=== PATIENT | male | born 1955 | race Caucasian/White ===

== ENCOUNTER 2025-09-06 21:51 | Emergency (ER) | payer MEDICARE, SELFPAY ==
[2025-09-06 22:07] VITALS: BP 195/94; PULSE 72; RESP 16; TEMP 36.2; O2SAT 94; BMI 28.7
--- NOTE | 2025-09-07 01:58 | ED.GENADULT ---
HPI - General Adult General Chief complaint: Hypertension Stated complaint: high bp 187/117 Time Seen by Provider: 09/07/25 01:54 Source: patient Mode of arrival: Ambulatory History of Present Illness HPI narrative: 69-year-old male seen in clinic with elevated pressure, takes metoprolol twice daily, worried about his blood pressure, wanted to have his blood pressure checked, has appointment with PCP in the morning. Related Data Home Medications ?Medication ?Instructions ?Recorded ?Confirmed alpha lipoic acid 600 mg capsule 600 mg PO DAILY 05/03/25 05/03/25 magnesium citrate 400mg PO 05/03/25 metformin 500 mg tablet,extended 500 mg PO DAILY 05/03/25 05/03/25 release 24 hr metoprolol succinate 25 mg 25 mg PO BID 05/03/25 05/03/25 tablet,extended release 24 hr potassium citrate 10 mEq (1,080 PO 05/03/25 05/03/25 mg) tablet,extended release pravastatin 40 mg tablet 40 mg PO DAILY 05/03/25 05/03/25 telmisartan 80 mg tablet 80 mg PO DAILY 05/03/25 05/03/25 Allergies Allergy/AdvReac Type Severity Reaction Status Date / Time atorvastatin AdvReac Severe Muscle Pain Verified 09/06/25 22:07 hazelnut AdvReac Intermediate periorbital Verified 09/06/25 22:07 edema lisinopril AdvReac Intermediate Cough Verified 09/06/25 22:07 amlodipine AdvReac Unknown Verified 09/06/25 22:07 hydrochlorothiazide AdvReac Unknown Verified 09/06/25 22:07 Patient History Social History Smoking Status: Never smoker Smoking Status: Never smoker Exam Narrative Exam Narrative: GENERAL: Well-developed patient, in mild distress. HEAD: Atraumatic. Normocephalic. EYES: Pupils equal round and reactive. Extraocular motions intact. No scleral icterus. No injection or drainage. ENT: Nose without bleeding, purulent drainage. Throat without erythema, tonsillar hypertrophy or exudate. Airway patent. NECK: Trachea midline. Non tender CARDIOVASCULAR: Regular rate and rhythm without murmurs, gallops, or rubs. RESPIRATORY: Clear to auscultation. Breath sounds equal bilaterally. No wheezes, rales, or rhonchi. GASTROINTESTINAL: Abdomen soft, non-tender, nondistended. EXTREMITIES: No edema or joint tenderness. BACK: Nontender without deformity or crepitance. No flank tenderness. NEURO: AOx3. Motor functions grossly nonfocal. SKIN: No rash or erythema of visible areas Initial Vital Signs Initial Vital Signs: Vital Signs Temperature 97.2 F L 09/06/25 22:07 Pulse Rate 72 09/06/25 22:07 Respiratory Rate 16 09/06/25 22:07 Blood Pressure 195/94 H 09/06/25 22:07 Pulse Oximetry 94 09/06/25 22:07 Oxygen Delivery Method Room Air 09/06/25 22:07 Course Vital Signs Vital signs: Vital Signs - 8 hr 09/06/25 22:07 Temperature 97.2 F L Pulse Rate 72 Respiratory Rate 16 Blood Pressure 195/94 H Pulse Oximetry 94 Oxygen Delivery Method Room Air Discharge Plan Departure Prescriptions: No Action pravastatin 40 mg tablet 40 mg PO DAILY potassium citrate 10 mEq (1,080 mg) tablet extended release PO telmisartan 80 mg tablet 80 mg PO DAILY metoprolol succinate 25 mg tablet extended release 24 hr 25 mg PO BID metformin 500 mg tablet extended release 24 hr 500 mg PO DAILY alpha lipoic acid 600 mg capsule 600 mg PO DAILY magnesium citrate 400mg PO Referrals: Rd Asif MD [Primary Care Provider, Internal Medicine]
== END 2025-09-07 03:01 | disposition left against medical advice (07) ==
PROVIDERS: Emergency Provider Emergency Medicine; PCP Internal Medicine
DX: Z53.21 Procedure and treatment not carried out due to patient leaving prior to being seen by health care provider (principal)
CPT/HCPCS: 99281